=== PATIENT | male | born 1990 | race Caucasian/White ===

== ENCOUNTER 2016-11-02 12:48 | Outpatient (CLI) | payer OTHER ==
[2016-11-02] MEDS ORDERED: GADOBUTROL 10 MMOL/10 ML VIAL IVP ONE (13:42)
--- NOTE | 2016-11-02 15:52 | MRI Report ---
EXAM: MRI BRAIN AND INTERNAL AUDITORY CANAL (IAC) EXAM DATE: 11/02/2016 01:53 PM. CLINICAL HISTORY: Sensorineural hearing loss, unilateral, left. COMPARISON: None. TECHNIQUE: Multiplanar, multisequence T1-weighted and fluid-sensitive MRI sequences of the brain and IACs were performed. Other: None. IV Contrast: 10 mL Gadavist. FINDINGS: No cerebellar tonsillar ectopia is present. No abnormal diffusion signal is present. Ventricles and sulci are within normal limits. No extra-axial fluid collection is present. The inner ear structures have a normal MRI appearance. No enhancing nodule is present in either cerebellopontine angle or internal auditory canal. No enhanc ing mass is identified in the brain parenchyma. No mass is identified in either orbit. Cavernous sinu ses enhance in symmetric fashion. IMPRESSION: 1. Normal contrast-enhanced MRI of the brain. [facility] Referring Provider Line: [phone] SITE ID: [id number]
== END 2016-11-02 12:49 | disposition home or self-care (01) ==
LOC: DI 12:48
PROVIDERS: ATTEND General Practice
DX: H90.42 Sensorineural hearing loss, unilateral, left ear, with unrestricted hearing on the contralateral side (principal)
CPT/HCPCS: 70543; A9585